=== PATIENT | male | born 1965 | race Hispanic/Latino ===

== ENCOUNTER 2019-05-08 14:21 | Emergency (ER) | payer SELFPAY ==
[2019-05-08] MEDS ORDERED: LIDOCAINE/PRILOCAINE CREAM 5GM TUBE TP ONE ×2 (14:38→15:00)
[2019-05-08] MEDS ORDERED: DEXTROSE 50%-WATER 50 ML DISP.SYRIN IV ONE ×2 (14:38→15:00)
[2019-05-08] MEDS ORDERED: FLUCONAZOLE 100 MG TAB ONE (16:04)
== END 2019-05-08 16:50 | disposition home or self-care (01) ==
LOC: EDH 14:21
DX: B37.42 Candidal balanitis (principal); N47.2 Paraphimosis; J45.909 Unspecified asthma, uncomplicated; F32.9 Major depressive disorder, single episode, unspecified; E11.9 Type 2 diabetes mellitus without complications; Z79.4 Long term (current) use of insulin; Z88.0 Allergy status to penicillin
CPT/HCPCS: 96374; 99284; J3490; J7070

== ENCOUNTER 2019-09-24 05:46 | Emergency (ER) | payer MEDICAID ==
[2019-09-24] MEDS ORDERED: ORPHENADRINE CITRATE 30 MG/ML ML ONE (07:01)
[2019-09-24] MEDS ORDERED: KETOROLAC TROMETHAMINE 60 MG/2 ML VIAL ONE (07:01)
[2019-09-24] MEDS ORDERED: HYDROCODONE/ACETAMINOPHEN 5/325 MG TAB ONE (07:01)
== END 2019-09-24 07:40 | disposition home or self-care (01) ==
LOC: EDH 05:46
DX: M54.5 Low back pain (principal); M62.838 Other muscle spasm; I10 Essential (primary) hypertension; E78.00 Pure hypercholesterolemia, unspecified; E11.9 Type 2 diabetes mellitus without complications; F32.9 Major depressive disorder, single episode, unspecified; J45.909 Unspecified asthma, uncomplicated; Z88.5 Allergy status to narcotic agent
CPT/HCPCS: 72100; 96372 ×2; 99284; J1885; J2360

== ENCOUNTER 2020-07-30 04:24 | Emergency (ER) | payer MEDICAID ==
[2020-07-30] MEDS ORDERED: LACTATED RINGERS 1000ML 1,000 ML IV ONE (04:46)
[2020-07-30] MEDS ORDERED: TETANUS/DIPHTHERIA TOXOID [ADULT] 0.5 ML VIAL IM ONE (04:47)
[2020-07-30 04:48] LABS: BASOPHILS % (AUTO) 0.6 % (0.0-5.0); EOSINOPHILS % (AUTO) 1.6 % (0.0-8.0); HEMATOCRIT 50.8 % (42-54); LYMPHOCYTES % (AUTO) 21.6 % (21.0-51.0); MEAN CORPUSCULAR HEMOGLOBIN 32.2 pg (27.0-33.0); MEAN CORPUSCULAR HGB CONC 34.8 g/dL (32.0-36.0); MEAN CORPUSCULAR VOLUME 92.4 fL (79-99); MONOCYTES % (AUTO) 7.5 % (3.0-13.0); NEUTROPHILS % (AUTO) 67.8 % (40.0-77.0); PLATELET COUNT (AUTO) 180 K/uL (130-400); RED CELL DISTRIBUTION WIDTH 12.1 % (11.0-15.5); WHITE BLOOD COUNT (AUTO) 7.7 K/uL (4.8-10.8)
[2020-07-30 04:55] LABS: INR 0.96 (0.85-1.15); PROTHROMBIN TIME 10.3 SEC (9.6-11.6)
[2020-07-30 04:56] LABS: PARTIAL THROMBOPLASTIN TIME 26.6 SEC (26.3-35.5)
[2020-07-30 04:57] LABS: CREATININE 1.1 mg/dL (0.5-1.5); POTASSIUM 4.1 mmol/L (3.5-5.1)
[2020-07-30 04:59] LABS: ALBUMIN 4.1 g/dL (3.5-5.0); BILIRUBIN,TOTAL 0.6 mg/dL (0.2-1.0); TOTAL PROTEIN, SERUM 8.1 g/dL (6.0-8.3)
[2020-07-30] MEDS ORDERED: LIDOCAINE HCL 2% 20ML ONE (05:12)
[2020-07-30] MEDS ORDERED: IOHEXOL-350 75 ML VIAL IV ONE (05:31)
[2020-07-30] MEDS ORDERED: ORPHENADRINE CITRATE 30 MG/ML ML ONE (06:28)
[2020-07-30 06:36] LABS: APPEARANCE,URINE Clear (CLEAR); BILIRUBIN,URINE Negative (NEGATIVE); COLOR,URINE Yellow (YELLOW); GLUCOSE, URINE (UA) >=1000 mg/dL (NEGATIVE); KETONES,URINE Negative (NEGATIVE); LEUKOCYTE ESTERASE ,URINE Negative (NEGATIVE); NITRATE,URINE Negative (NEGATIVE); OCCULT BLOOD,URINE Negative (NEGATIVE); PH,URINE 7.5 (5.0-8.0); PROTEIN,URINE Negative (NEGATIVE)
[2020-07-30 06:41] LABS: AMPHET/METH SCREEN,URINE NEGATIVE (NEGATIVE); BARBITURATE SCREEN, URINE NEGATIVE (NEGATIVE); BENZODIAZEPINES SCREEN,URINE NEGATIVE (NEGATIVE); CANNABINOID SCREEN,URINE NEGATIVE (NEGATIVE); COCAINE SCREEN,URINE NEGATIVE (NEGATIVE); OPIATE SCREEN,URINE NEGATIVE (NEGATIVE); PHENCYCLIDINE SCREEN,URINE NEGATIVE (NEGATIVE)
[2020-07-30 07:05] LABS: BACTERIA,URINE Rare /HPF (None Seen); RBC,URINE 0-1 /HPF (0-1); SQUAMOUS EPITHELIAL CELL,UR Rare /HPF (0-2); WBC,URINE 0-1 /HPF (0-1)
[2020-07-30] MEDS ORDERED: KETOROLAC TROMETHAMINE 30MG/ML ONE (07:33)
[2020-07-30] MEDS ORDERED: HYDROCODONE/ACETAMINOPHEN 10/325 MG TAB ONE (07:33)
== END 2020-07-30 07:47 | disposition home or self-care (01) ==
LOC: EDH 04:24
DX: S01.81XA Laceration without foreign body of other part of head, initial encounter (principal); S39.012A Strain of muscle, fascia and tendon of lower back, initial encounter; S29.012A Strain of muscle and tendon of back wall of thorax, initial encounter; J45.909 Unspecified asthma, uncomplicated; F32.9 Major depressive disorder, single episode, unspecified; E11.9 Type 2 diabetes mellitus without complications; E78.00 Pure hypercholesterolemia, unspecified; Z88.0 Allergy status to penicillin; Z88.5 Allergy status to narcotic agent; V89.2XXA Person injured in unspecified motor-vehicle accident, traffic, initial encounter; Y93.89 Activity, other specified; Y92.488 Other paved roadways as the place of occurrence of the external cause; Y99.8 Other external cause status
CPT/HCPCS: 12013; 36415; 70450; 71260; 72125; 74177; 80053; 80305; 81001; 82550; 83690; 84484; 85025; 85610; 85730; 90471; 90714; 93005; 96361; 96374; 99285; J1885; J2360; J3490; J7120; Q9967

== ENCOUNTER 2021-11-05 16:53 | Emergency (ER) | payer MEDICAID ==
[~2021-11-05] VITALS: Ht 165.1 cm; Wt 86.2 kg
[2021-11-05 17:12] VITALS: BP 134/82
[2021-11-05] MEDS ORDERED: 0.9%NACL 1000ML 2,000 ML IV ONE (17:30)
[2021-11-05] MEDS ORDERED: ONDANSETRON 4MG INJ IVP ONE (17:30)
[2021-11-05] MEDS ORDERED: ONDANSETRON 4MG INJ ONE (17:37)
[2021-11-05 17:48] LABS: BASOPHILS % (AUTO) 0.2 % (0.0-5.0); EOSINOPHILS % (AUTO) 0.8 % (0.0-8.0); LYMPHOCYTES % (AUTO) 10.4 % (21.0-51.0); MEAN CORPUSCULAR HEMOGLOBIN 32.4 pg (27.0-33.0); MEAN CORPUSCULAR HGB CONC 34.4 g/dL (32.0-36.0); MEAN CORPUSCULAR VOLUME 94.2 fL (79-99); MONOCYTES % (AUTO) 7.1 % (3.0-13.0); NEUTROPHILS % (AUTO) 80.9 % (40.0-77.0); PLATELET COUNT (AUTO) 168 K/uL (130-400); RED BLOOD CELL COUNT(AUTO) 5.31 MIL/uL (4.50-6.20); RED CELL DISTRIBUTION WIDTH 12.2 % (11.0-15.5); WHITE BLOOD COUNT (AUTO) 11.5 K/uL (4.8-10.8)
[2021-11-05 18:08] LABS: CREATININE 0.8 mg/dL (0.5-1.5); POTASSIUM 3.5 mmol/L (3.5-5.1)
[2021-11-05 18:17] LABS: ALBUMIN 3.9 g/dL (3.5-5.0); BILIRUBIN,TOTAL 0.7 mg/dL (0.2-1.0); TOTAL PROTEIN, SERUM 7.7 g/dL (6.0-8.3)
[2021-11-05] MEDS ORDERED: ONDA4TAB10 PO (18:50)
== END 2021-11-05 19:01 | disposition home or self-care (01) ==
LOC: EDH 16:53
DX: K52.9 Noninfective gastroenteritis and colitis, unspecified (principal); E86.9 Volume depletion, unspecified; Z20.822 Contact with and (suspected) exposure to COVID-19; Z88.0 Allergy status to penicillin; E11.9 Type 2 diabetes mellitus without complications
CPT/HCPCS: 36415; 80053; 83690; 84484; 85025; 87635; 87804 ×2; 93005; 96361; 96374; 99284; C9803; J2405; J7030

== ENCOUNTER 2022-10-06 08:06 | Emergency (ER) | payer MEDICAID ==
[~2022-10-06] VITALS: Ht 165.1 cm; Wt 84.4 kg
[~2022-10-06 08:06] MED LIST: CLIN-141 PO; FLUT16H NASAL; LORA10TA7 PO; ONDA4TAB10 PO
[2022-10-06 08:29] LABS: BASOPHILS % (AUTO) 0.8 % (0.0-5.0); EOSINOPHILS % (AUTO) 0.9 % (0.0-8.0); HEMATOCRIT 51.3 % (42-54); MEAN CORPUSCULAR HEMOGLOBIN 32.9 pg (27.0-33.0); MEAN CORPUSCULAR HGB CONC 34.9 g/dL (32.0-36.0); MEAN CORPUSCULAR VOLUME 94.3 fL (79-99); MONOCYTES % (AUTO) 6.8 % (3.0-13.0); NEUTROPHILS % (AUTO) 75.8 % (40.0-77.0); PLATELET COUNT (AUTO) 207 K/uL (130-400); RED BLOOD CELL COUNT(AUTO) 5.44 MIL/uL (4.50-6.20); RED CELL DISTRIBUTION WIDTH 11.9 % (11.0-15.5)
[2022-10-06 08:42] LABS: APPEARANCE,URINE CLEAR (CLEAR); BILIRUBIN,URINE NEGATIVE (NEGATIVE); COLOR,URINE LIGHT-YELLOW (YELLOW); GLUCOSE, URINE (UA) >=1000 mg/dL (NEGATIVE); KETONES,URINE NEGATIVE (NEGATIVE); LEUKOCYTE ESTERASE ,URINE 500 Leu/uL (NEGATIVE); NITRATE,URINE NEGATIVE (NEGATIVE); OCCULT BLOOD,URINE SMALL (NEGATIVE); PROTEIN,URINE NEGATIVE (NEGATIVE); UROBILINOGEN,URINE 0.2 mg/dL (0.2-1.0)
[2022-10-06 08:43] LABS: BACTERIA,URINE RARE /HPF (None Seen); MUCUS,URINE RARE LPF (None Seen); SQUAMOUS EPITHELIAL CELL,UR FEW /HPF (0-2)
[2022-10-06 08:43] LABS: ALBUMIN 4.2 g/dL (3.5-5.0); POTASSIUM 3.7 mmol/L (3.5-5.1); TOTAL PROTEIN, SERUM 8.2 g/dL (6.0-8.3)
[2022-10-06] MEDS ORDERED: LIDOCAINE HCL 2% VISCOUS 15 ML UDCUP PO ONE (10:00)
[2022-10-06] MEDS ORDERED: PANTOPRAZOLE 40 MG/VIAL IVP ONE (10:00)
[2022-10-06] MEDS ORDERED: MAG/ALUM/SIMETH 30 ML UDCUP PO ONE (10:00)
[2022-10-06 10:28] LABS: AMPHET/METH SCREEN,URINE NEGATIVE (NEGATIVE); BARBITURATE SCREEN, URINE NEGATIVE (NEGATIVE); BENZODIAZEPINES SCREEN,URINE NEGATIVE (NEGATIVE); CANNABINOID SCREEN,URINE NEGATIVE (NEGATIVE); COCAINE SCREEN,URINE POSITIVE (NEGATIVE); OPIATE SCREEN,URINE NEGATIVE (NEGATIVE); PHENCYCLIDINE SCREEN,URINE NEGATIVE (NEGATIVE)
[2022-10-06] MEDS ORDERED: 0.9%NACL 1000ML 1,000 ML IV ONE (10:30)
[2022-10-06] MEDS ORDERED: DEXL60CA3 PO (13:32)
[2022-10-06 13:41] VITALS: BP 114/77
== END 2022-10-06 13:54 | disposition home or self-care (01) ==
LOC: EDH 08:06
DX: K29.70 Gastritis, unspecified, without bleeding (principal); F14.10 Cocaine abuse, uncomplicated; J45.909 Unspecified asthma, uncomplicated; E11.9 Type 2 diabetes mellitus without complications; E78.00 Pure hypercholesterolemia, unspecified; I10 Essential (primary) hypertension; Z88.0 Allergy status to penicillin; Z88.5 Allergy status to narcotic agent; Z79.899 Other long term (current) drug therapy
CPT/HCPCS: 99284; 96374; 96361; 82550; 84484; 80053; 80305; 83690 ×2; 85025; 87088; 81001; 36415; 93005; J7030; S0164; C9113

== ENCOUNTER 2024-02-22 17:09 | Emergency (ER) | payer MEDICAID ==
[~2024-02-22] VITALS: Ht 165.1 cm; Wt 89.8 kg
[~2024-02-22 17:09] MED LIST changes: +DEXL60CA3 PO; +ONDA-243 PO; -ONDA4TAB10 PO
[2024-02-22 19:47] LABS: BASOPHILS # (AUTO) 0.06 K/uL (0.00-0.20); BASOPHILS % (AUTO) 0.4 % (0.0-5.0); EOSINOPHILS # (AUTO) 0.03 K/uL (0.00-0.70); EOSINOPHILS % (AUTO) 0.2 % (0.0-8.0); HEMATOCRIT 48.9 % (42-54); IMMATURE GRANULOCYTE ABSOLUTE 0.15 K/uL (0-1); LYMPHOCYTES # (AUTO) 1.8 K/uL (1.0-4.8); LYMPHOCYTES % (AUTO) 12.8 % (21.0-51.0); MEAN CORPUSCULAR HEMOGLOBIN 32.1 pg (27.0-33.0); MEAN CORPUSCULAR HGB CONC 36.2 g/dL (32.0-36.0); MEAN CORPUSCULAR VOLUME 88.7 fL (79-99); MONOCYTES # (AUTO) 0.6 K/uL (0.1-1.0); MONOCYTES % (AUTO) 4.6 % (3.0-13.0); NEUTROPHILS # (AUTO) 11.1 K/uL (1.8-7.7); NEUTROPHILS % (AUTO) 80.9 % (40.0-77.0); PLATELET COUNT (AUTO) 179 K/uL (130-400); RED BLOOD CELL COUNT(AUTO) 5.51 MIL/uL (4.50-6.20); RED CELL DISTRIBUTION WIDTH 12.5 % (11.0-15.5); WHITE BLOOD COUNT (AUTO) 13.8 K/uL (4.8-10.8)
[2024-02-22 19:56] LABS: CREATININE 0.9 mg/dL (0.5-1.3)
[2024-02-22 20:01] LABS: ALBUMIN 4.1 g/dL (3.5-5.0); BILIRUBIN,TOTAL 0.6 mg/dL (0.2-1.0); MAGNESIUM 1.9 mg/dL (1.80-2.40); TOTAL PROTEIN, SERUM 8.5 g/dL (6.0-8.3)
[2024-02-22] MEDS: MECLIZINE HCL 25 MG TABLET PO ONE (20:27)
[2024-02-22] MEDS: ACETAMINOPHEN 500 MG TABLET ONE (20:28)
[2024-02-22] MEDS: 0.9%NACL 1000ML 1,000 ML IV ONE (20:30)
[2024-02-22] MEDS ORDERED: MECL-302 PO (22:26)
[2024-02-22 22:42] VITALS: BP 131/78; PULSE 80; RESP 16; O2SAT 97
== END 2024-02-22 22:46 | disposition home or self-care (01) ==
LOC: EDH 17:09
DX: R42 Dizziness and giddiness (principal); E11.65 Type 2 diabetes mellitus with hyperglycemia; D72.829 Elevated white blood cell count, unspecified; J45.909 Unspecified asthma, uncomplicated; E78.00 Pure hypercholesterolemia, unspecified; I10 Essential (primary) hypertension; Z88.5 Allergy status to narcotic agent; Z88.0 Allergy status to penicillin
CPT/HCPCS: 99285; 96360; 70450; 71045; 96361; 82550; 83735; 84484; 80053; 85025; 36415; 93005; J7030